=== PATIENT | female | born 1985 | race Caucasian/White ===

== ENCOUNTER 2018-07-21 09:57 | Outpatient (CLI) | payer OTHER | END 2018-07-21 09:58 | disposition home or self-care (01) | LOC: SC 09:57 | PROVIDERS: ATTEND Internal Medicine Pulmonary Disease | DX: R06.83 Snoring (principal); G47.10 Hypersomnia, unspecified; E66.9 Obesity, unspecified; Z68.30 Body mass index [BMI] 30.0-30.9, adult | CPT/HCPCS: 99203; 99212 ==

== ENCOUNTER 2018-07-28 20:30 | Outpatient (CLI) | payer OTHER | END 2018-07-28 23:59 | disposition home or self-care (01) | LOC: SC 20:30 | PROVIDERS: ATTEND Internal Medicine Pulmonary Disease | DX: G47.33 Obstructive sleep apnea (adult) (pediatric) (principal) | CPT/HCPCS: 95806 ==

== ENCOUNTER 2018-10-21 13:12 | Outpatient (CLI) | payer OTHER ==
--- NOTE | 2018-10-21 13:48 | CONSULTATION NOTE ---
Information from patient questionnaire entered by Bambi Villa. I have reviewed and concur with the information entered by Bambi Villa. This document represents the service I personally performed and the decisions made by me, Gareth Hampton MD, [facility]. - History of Present Illness Initial [place] Sleepiness Scale score: 4 Current [place] Sleepiness Scale score: 2 - Allergies/Medications Allergies and home medications reviewed: Yes - Review of Systems Review of systems same as previous: Yes - Impression HPI: Ms. Alcantara returned with her for follow up of the home sleep apnea test (HSAT) she had on 07/28/2018. The test showed mild obstructive sleep apnea- hypopnea with an AHI of 8.6 and jamil oxygen saturation of 78.7%. The respiratory events occurred more frequently during supine sleep. The patient was informed of these findings. I explained to her the pathophysiology behind obstructive sleep apnea. We then spent quite a bit of time discussing different treatment options. For mild obstructive sleep apnea, surgery and oral appliance are alternatives to nasal CPAP therapy but in moderate or severe cases, nasal CPAP is the most effective and reliable treatment. After some discussion, she opted to go with the nasal CPAP therapy. I explained to her how CPAP machine works and what to expect when using the machine. She is quite familiar with the treatment because her uses a CPAP. PE: No significant change on the physical exam today except for a slight weight loss of 7 lbs (from 188 to 181 lbs). IMPRESSION: 1. Obstructive Sleep Apnea-Hypopnea Syndrome, mild, associated with moderate hypoxemia. Possibly, this is the cause of the patients symptoms of unrefreshed sleep, and excessive daytime sleepiness. As mentioned above, the patient will be started on autoCPAP set at 4 - 8 cmH2O. Depending on her response and compliance she may be brought back for an overnight CPAP titration study. The patient is also interested in checking out the oral appliance therapy with her dentist. PLAN: 1. Prescription made for an autoCPAP with heated humidifier 2. Attempt to lose weight. 3. Prescription made for an oral appliance. 4. Return for follow up after one month on the CPAP device. This visit is time-based and I spent 15 minutes with the patient, and more than 50% of the time was spent counseling the patient.
== END 2018-10-21 13:13 | disposition home or self-care (01) ==
LOC: SC 13:12
PROVIDERS: ATTEND Internal Medicine Pulmonary Disease
DX: G47.33 Obstructive sleep apnea (adult) (pediatric) (principal)
CPT/HCPCS: 99212; 99213

== ENCOUNTER 2019-03-02 09:30 | Outpatient (CLI) | payer OTHER ==
--- NOTE | 2019-03-02 13:44 | MRI Report ---
Reason: HEADACHE Procedure Date: 03/02/2019 Accession Number: [id number] / [id number] Procedure: MRI - Brain W/O CPT Code: Final Report FULL RESULT: EXAM: MRI BRAIN WITHOUT CONTRAST EXAM DATE: 03/02/2019 10:27 AM. CLINICAL HISTORY: 33-year-old presenting with headache. Evaluate for intracranial pathology. COMPARISON: None. TECHNIQUE: Multiplanar, multisequence T1-weighted and fluid-sensitive MR sequences of the brain were performed. Sequences optimized for routine evaluation. Other: None. IV Contrast: None. FINDINGS: Motion artifact technique limits evaluation. Brain Volume: Normal for age. Parenchyma/Dura: No mass, acute infarct or hemorrhage. No white matter lesions identified. Ventricles/Cisterns: No hydrocephalus. No abnormal extra-axial fluid collection or hemorrhage. Orbits: Symmetric and unremarkable. Sella Turcica: The pituitary gland, cavernous sinuses, suprasellar cistern and optic chiasm are unremarkable. IAC: Symmetric and unremarkable. Vasculature: Normal signal flow void is seen in the major arterial structures at the skull base. Sinuses: No acute appearing sinus disease. Bones: No focal pathologic appearing marrow signal changes. Other: None. IMPRESSION: 1. Motion artifact technically limits evaluation. 2. When accounting for technical limitations, no definite acute infarct, acute intracranial hemorrhage, mass, hydrocephalus, or midline shift seen. 3. No definite white matter lesion seen. RADIA
== END 2019-03-02 09:31 | disposition home or self-care (01) ==
LOC: DI 09:30
PROVIDERS: ATTEND Physician Assistant
DX: R51 Headache (principal)
CPT/HCPCS: 70551

== ENCOUNTER 2020-09-29 08:14 | Outpatient (CLI) | payer OTHER ==
--- NOTE | 2020-09-30 11:36 | Mammography Report ---
UNILATERAL RIGHT DIGITAL DIAGNOSTIC MAMMOGRAM 3D/2D: 09/29/2020 CLINICAL: Palpable right breast lump. Comparison is made to exams dated: 05/08/2020 mammogram, 11/09/2019 mammogram, 04/21/2019 mammogram, mammogram - [facility], 03/22/2017 breast MRI - [facility], and 03/19/2017 ultrasou nd - [facility]. The tissue of right breast is heterogeneously dense. This may lower the sensitivity of mammography. No significant masses, calcifications, or other findings are seen in the breast. IMPRESSION: INCOMPLETE: NEEDS ADDITIONAL IMAGING EVALUATION No suspicious finding. Ultrasound of the palpable area of concern will be performed. This exam was interpreted at Station ID: [id number]. NOTE: For mammograms, a report in lay terms will be sent to the patient. Approximately 15% of breast malignancies will not be visualized mammographically. In the management of a palpable breast mass, a negative mammogram must not discourage biopsy of a clinically suspicious lesion. Electronically Signed By: Dann Soto M.D. jr/:09/29/2020 15:40:10 ACR BI-RADS Category 0: Incomplete 3340F PARENCHYMAL PATTERN: (D) - The breast(s) demonstrate(s) heterogeneously dense fibroglandular shailesh roberson. BI-RADS CATEGORY: (0) - 0 Ultrasound [id number] Immediate follow-up LATERALITY: (B)
--- NOTE | 2020-09-30 11:36 | Ultrasound Report ---
LIMITED ULTRASOUND OF RIGHT BREAST: 09/29/2020 CLINICAL: Palpable right breast lump. Comparison is made to exams dated: 09/29/[address] [facility], 05/08/2020 jorge mogram, 11/09/2019 mammogram, 04/21/2019 mammogram, 02/02/2019 mammogram - [facility], and 2017 breast MRI - [facility]. Real-time ultrasound of the right breast 9-11 o'clock region was performed. Nguyen scale images of the real-time examination were reviewed. IMPRESSION: NEGATIVE There is no sonographic evidence of malignancy. Return to annual mammogram screening schedule is recommended. This exam was interpreted at Station ID: [id number]. Electronically Signed By: Dann Soto M.D., jr/harrison:09/29/2020 15:45:22 Ultrasound BI-RADS: 1 Negative BI-RADS CATEGORY: (1) - 1 RECOMMENDATION: (ANNUAL) - Recommend routine annual screening mammography. [id number] return to screening LATERALITY: (B)
== END 2020-09-29 08:15 | disposition home or self-care (01) ==
LOC: DI 08:14
PROVIDERS: ATTEND Nurse Practitioner Family
DX: N63.10 Unspecified lump in the right breast, unspecified quadrant (principal)

== ENCOUNTER 2021-07-27 14:28 | Outpatient (CLI) | payer OTHER | END 2021-07-27 14:29 | disposition home or self-care (01) | LOC: LAB.N 14:28 | PROVIDERS: ATTEND Surgery | DX: Z01.812 Encounter for preprocedural laboratory examination (principal); K21.9 Gastro-esophageal reflux disease without esophagitis; J45.909 Unspecified asthma, uncomplicated; Z20.822 Contact with and (suspected) exposure to COVID-19 ==

== ENCOUNTER 2021-07-31 06:45 | Day surgery (SDC) | payer OTHER ==
[2021-07-31 07:05] VITALS: BP 124/75
[2021-07-31] MEDS ORDERED: PROPOFOL 500 MG/50 ML 500 MG/50 ML VIAL ONE (07:08)
[2021-07-31] MEDS ORDERED: LIDOCAINE-MPF 2% 5 ML VIAL ONE (07:08)
[2021-07-31 07:09] LABS: HCG UR QUAL POSITIVE
[2021-07-31] MEDS ORDERED: LACTATED RINGERS 1,000 ML IV ONE (07:09)
[2021-07-31 07:51] LABS: HCG,QUALITATIVE BLOOD POSITIVE
== END 2021-07-31 06:46 | disposition home or self-care (01) ==
LOC: SDS 06:45
PROVIDERS: ATTEND Surgery
DX: K21.9 Gastro-esophageal reflux disease without esophagitis (principal); Z53.9 Procedure and treatment not carried out, unspecified reason
CPT/HCPCS: 36415; 81025; 84703

== ENCOUNTER 2023-06-17 19:29 | Outpatient (CLI) | payer OTHER ==
--- NOTE | 2023-06-18 11:12 | Ultrasound Report ---
PROCEDURE: Extremity Soft Tissue Limited INDICATIONS: GANGLION TECHNIQUE: Real-time scanning was performed of the left radial wrist, with image documentation. COMPARISON: None. FINDINGS: Targeted ultrasound of the left wrist demonstrate no cyst or mass. On the radial side at the area of concern, there is fluid and edema within a probable tendon sheath suggestive of injury. IMPRESSION: 1.Targeted ultrasound of the left wrist demonstrates no cyst or mass. 2.At the area of concern, there is fluid and edema within a tendon sheath suggestive of injury. If cl inical symptoms persist, consider an MRI for further evaluation. Reviewed by: Jaylene Long MD on 06/18/2023 11:11 AM PDT Approved by: Jaylene Long MD on 06/18/2023 11:11 AM PDT Station ID: [id number]
== END 2023-06-17 19:30 | disposition home or self-care (01) ==
LOC: DI 19:29
PROVIDERS: ATTEND Family Medicine
DX: R60.0 Localized edema (principal)